=== PATIENT | female | born 1995 | race Caucasian/White ===

== ENCOUNTER 2018-12-02 00:12 | Emergency (ER) | payer OTHER, MEDICAID ==
[~2018-12-02] VITALS: Ht 160 cm; Wt 49.4 kg
[2018-12-02 00:24] VITALS: Ht 160 cm; Wt 49.4 kg
[2018-12-02 01:13] LABS: BASOPHIL % 1.3 % (0-2); CALCIUM 8.9 mg/dL (8.5-10.1); CARBON DIOXIDE 22.9 mmol/L (21-32); CHLORIDE SERUM 107 mmol/L (98-107); CREATININE SERUM 0.6 mg/dL (0.6-1.0); GFR1 > 60 mL/min; GLUCOSE SERUM 80 mg/dL (74-106); PLATELET COUNT 229 x10^3mcL (130-400); POTASSIUM SERUM 3.9 mmol/L (3.5-5.1); RED CELL DISTRIBUTION WIDTH 12.3 % (11.5-14.5); SODIUM SERUM 140 mmol/L (136-145)
[2018-12-02 01:18] LABS: ALKALINE PHOSPHATASE 67 U/L (46-116); ALT/SGPT 17 U/L (14-59); AST/SGOT 15 U/L (15-37); BILIRUBIN TOTAL 0.71 mg/dL (0.20-1.00)
[2018-12-02 02:12] LABS: UA SPECIFIC GRAVITY 1.015 (1.005-1.035); microscopic required? YES; urine erythrocyte NEGATIVE (NEGATIVE)
[2018-12-02 02:20] VITALS: BP 91/61
== END 2018-12-02 02:27 | disposition home or self-care (01) ==
LOC: EDBD 00:12 → ED 00:12
PROVIDERS: Emergency Medicine
DX: B37.3 Candidiasis of vulva and vagina (principal); N39.0 Urinary tract infection, site not specified
CPT/HCPCS: 36415